=== PATIENT | female | born 1970 | race Two or more races ===

== ENCOUNTER 2024-05-16 07:00 | Day surgery (SDC) | payer MEDICAID, SELFPAY ==
[2024-05-16] VITALS (9 sets, daily range): BP systolic 132–161; BP diastolic 87–108; PULSE 66–87; RESP 15–20; TEMP 36.2–36.4; O2SAT 95–98; BMI 27.4
[2024-05-16] MEDS: MIDAZOLAM INJ 1 MG/ML VIAL 2 ML (ASD USE ONLY) 2 MG IV (07:54)
[2024-05-16] MEDS: DiphenhydrAMINE INJ 50 MG/ML VIAL 25 MG IV (07:54)
[2024-05-16] MEDS: fentaNYL CIT INJ 50 mCg/ML AMP 2ML (ASD USE ONLY) IV (07:54)
== END 2024-05-16 08:50 | disposition home or self-care (01) ==
PROVIDERS: PCP Physician Assistant; Referring Provider Surgery; Visit Provider Surgery
PROC: 0DBE8ZX Excision of Large Intestine, Via Natural or Artificial Opening Endoscopic, Diagnostic (ICD-10-PCS; CPT 45380; principal; 2024-05-16 08:00)
DX: K64.1 Second degree hemorrhoids (principal)
CPT/HCPCS: 45378; 81025; J1200; J2250; J3010